=== PATIENT | male | born 1960 ===

== ENCOUNTER 2016-10-24 08:01 | Emergency (ER) | payer OTHER ==
[2016-10-24 08:10] VITALS: TEMP 97.6
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
[2016-10-24 10:07] VITALS: BP 129/87; PULSE 90; RESP 16; O2SAT 99
--- NOTE | 2016-10-24 10:23 | RAD ---
PROCEDURE: Radiographs of the Right Shoulder HISTORY: pain COMPARISON: No prior. FINDINGS: BONES: Normal. No fracture. JOINTS: Normal. Glenohumeral and acromioclavicular joints preserved. No osteoarthritis. SOFT TISSUES: Normal. OTHER FINDINGS: None. IMPRESSION: No acute findings related to/accounting for the clinical presentation.
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
== END 2016-10-24 10:07 | disposition home or self-care (01) ==
LOC: C.ER 08:01
DX: S43.401A Unspecified sprain of right shoulder joint, initial encounter (principal); S32.10XA Unspecified fracture of sacrum, initial encounter for closed fracture; V49.40XA Driver injured in collision with unspecified motor vehicles in traffic accident, initial encounter

== ENCOUNTER 2016-11-21 07:37 | Emergency (ER) | payer OTHER ==
[2016-11-21 08:04] VITALS: TEMP 98.3; O2SAT 100
--- NOTE | 2016-11-21 08:23 | C.PDOC ---
Time Seen by Provider: 11/21/16 08:04 Chief Complaint (Nursing): Upper Extremity Problem/Injury Past Medical History Vital Signs: Last Vital Signs Temp 98.3 F 11/21/16 07:51 Pulse 83 11/21/16 07:51 Resp 15 11/21/16 07:51 BP 100/61 11/21/16 07:51 Pulse Ox 100 11/21/16 07:51 Family History: States: Unknown Family Hx - Social History Hx Alcohol Use: No Hx Substance Use: No - Immunization History Hx Tetanus Toxoid Vaccination: No Hx Influenza Vaccination: No Hx Pneumococcal Vaccination: No ED Course And Treatment O2 Sat by Pulse Oximetry: 100 Disposition - Disposition Referrals: Lovely Neves MD [Staff Provider] - Karen Miller MD [Staff Provider] - Disposition: HOME/ ROUTINE Disposition Time: 08:20 Condition: STABLE Additional Instructions: Por favor, siga en la clnica para jayme mayor evaluacin del dolor en el hombro y puede skyler la evaluacin ortopdica o fisioterapia [place] medicamentos para el dolor segn sea necesario, ibuprofeno 600 mg cada 8 horas con alimentos para no molestar el estmago. Prescriptions: Ibuprofen [Motrin] 600 mg PO Q8 #30 tab Instructions: Shoulder Sprain (ED) Print Language: POLISH - POA Present On Arrival: None - Clinical Impression Clinical Impression: Right shoulder pain
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
[2016-11-21 09:01] VITALS: BP 105/62; PULSE 79; RESP 18
== END 2016-11-21 09:01 | disposition home or self-care (01) ==
LOC: C.ER 07:37
DX: M25.511 Pain in right shoulder (principal)

== ENCOUNTER 2018-04-18 09:30 | Emergency (ER) | payer OTHER ==
[2018-04-18 09:37] VITALS: BMI 24.2
[2018-04-18 09:39] VITALS: TEMP 98.1
--- NOTE | 2018-04-18 11:50 | C.PDOC ---
History Of Present Illness 58 year old female presents to the ED for evaluation of worsening upper left arm pain s/p injury that occurred 3 weeks-1month ago. Patient reports he was lifting a heavy object while working, suddenly felt a pop in the upper left arm and has had pain since. He notes he did not follow up with PMD, but the pain has worsened which promoted ED visit. Denies fever, numbness, tingling, and any other associated symptoms. Time Seen by Provider: 04/18/18 09:52 Chief Complaint (Nursing): Upper Extremity Problem/Injury History Per: Patient History/Exam Limitations: no limitations Onset/Duration Of Symptoms: Days (3weeks-1month.) Current Symptoms Are (Timing): Still Present Past Medical History Reviewed: Historical Data, Nursing Documentation, Vital Signs Vital Signs: Last Vital Signs Temp 98.1 F 04/18/18 09:37 Pulse 93 H 04/18/18 09:37 Resp 18 04/18/18 09:37 BP 118/78 04/18/18 09:37 Pulse Ox 99 04/18/18 09:37 Family History: States: Unknown Family Hx - Social History Hx Alcohol Use: Yes Hx Substance Use: No - Immunization History Hx Tetanus Toxoid Vaccination: No Hx Influenza Vaccination: No Hx Pneumococcal Vaccination: No Review Of Systems Except As Marked, All Systems Reviewed And Found Negative. Constitutional: Negative for: Fever Musculoskeletal: Positive for: Arm Pain (left arm. ) Neurological: Negative for: Weakness, Numbness, Incoordination Physical Exam - Physical Exam Appears: Well, Non-toxic, No Acute Distress Skin: Normal Color, Warm, Dry Head: Atraumatic, Normacephalic Eye(s): bilateral: Normal Inspection Oral Mucosa: Moist Extremity: Normal ROM (of the left arm. ), Tenderness (left biceps, muscle constricted), Capillary Refill (less than 2 seconds. ), Other (contracted biceps muscle.) Pulses: Left Radial: Normal Neurological/Psych: Oriented x3, Normal Speech, Normal Motor, Normal Sensation, Normal Reflexes ED Course And Treatment O2 Sat by Pulse Oximetry: 99 (RA) Pulse Ox Interpretation: Normal - Other Rad LF Hum. X-ray X-Ray: Viewed By Me, Read By Radiologist Interpretation: FINDINGS: BONES: Normal. No fracture or focal lesion. SOFT TISSUES: Normal. OTHER FINDINGS: None. IMPRESSION: Normal radiographs of left humerus. Progress Note: Plan: LT Humerus x-ray. Progress/Update: X-ray viewed by attending and me. Patient stable for discharge home and advised to follow up with a Orthopedist. Prescribed Motrin. Disposition - Disposition Referrals: Kenny Roman MD [Staff Provider] - Disposition: HOME/ ROUTINE Disposition Time: 11:55 Condition: STABLE Additional Instructions: Follow up with your Worksman's compensation doctor or with Orthopedist within 2-3 days. Return to ED if feel worse. Prescriptions: Ibuprofen [Motrin Tab] 600 mg PO Q8 #30 tab Forms: Gen Discharge Inst Maori, [facility] (Uzbek) - Clinical Impression Clinical Impression: Biceps tendon rupture - PA / INFECTION CONTROL SPECIALIST / Resident Statement MD/DO has reviewed & agrees with the documentation as recorded. - Scribe Statement The provider has reviewed the documentation as recorded by the Scribe (Genny Packer) All medical record entries made by the Scribe were at my direction and personally dictated by me. I have reviewed the chart and agree that the record accurately reflects my personal performance of the history, physical exam, medical decision making, and the department course for this patient. I have also personally directed, reviewed, and agree with the discharge instructions and disposition.
[2018-04-18 12:10] VITALS: BP 121/75; PULSE 78; RESP 16
--- NOTE | 2018-04-18 13:22 | RAD ---
PROCEDURE: Radiographs of the left humerus. HISTORY: pain COMPARISON: None. FINDINGS: BONES: Normal. No fracture or focal lesion. SOFT TISSUES: Normal. OTHER FINDINGS: None. IMPRESSION: Normal radiographs of left humerus.
[2018-04-18 13:35] VITALS: O2SAT 99
== END 2018-04-18 12:10 | disposition home or self-care (01) ==
LOC: C.ER 09:30
DX: S46.212A Strain of muscle, fascia and tendon of other parts of biceps, left arm, initial encounter (principal); X50.0XXA Overexertion from strenuous movement or load, initial encounter; Y92.89 Other specified places as the place of occurrence of the external cause; Y99.0 Civilian activity done for income or pay